=== PATIENT | male | born 1970 | race African-American/Black ===

== ENCOUNTER 2021-09-01 23:57 | Observation (INO) | payer OTHER ==
[~2021-09-01] VITALS: Ht 172.7 cm; Wt 105.3 kg
[~2021-09-01 23:57] MED LIST: MEDROL DOSEPAK4 MG PO
[2021-09-02] VITALS (16 sets, daily range): BP systolic 103–142; BP diastolic 54–84; TEMP 98.1–99.2; Ht 172.7 cm; Wt 105.3 kg
[2021-09-02 00:44] LABS: POTASSIUM 3.6 mmol/L (3.6-5.2)
[2021-09-02 00:47] LABS: PLATELET COUNT 3 K/uL (142-355)
[2021-09-03 00:05] VITALS: BP 125/63; TEMP 98.7
[2021-09-03 04:05] VITALS: BP 122/65; TEMP 98
[2021-09-03 05:10] LABS: PLATELET COUNT 35 K/uL (142-355)
[2021-09-03 08:05] VITALS: BP 124/76; TEMP 98.3
[2021-09-03 12:05] VITALS: BP 127/67; TEMP 98.6
[2021-09-03 16:05] VITALS: BP 129/66; TEMP 98.7
[2021-09-03 20:06] VITALS: BP 136/61; TEMP 98.6
[2021-09-04 00:05] VITALS: BP 131/67; TEMP 97.7
[2021-09-04 04:05] VITALS: BP 125/67; TEMP 98.3
[2021-09-04 08:05] VITALS: BP 128/62; TEMP 98.2
[2021-09-04 08:44] LABS: PLATELET COUNT 54 K/uL (142-355)
[2021-09-04 12:05] VITALS: BP 127/68; TEMP 98.3
== END 2021-09-04 14:30 | disposition home or self-care (01) ==
LOC: ED 23:57 → MED/SURG 09-02 01:40
PROVIDERS: Emergency Medicine; Family Medicine; ADMIT Internal Medicine Endocrinology, Diabetes & Metabolism; ATTEND Internal Medicine Endocrinology, Diabetes & Metabolism
PROC: 30233R1 Transfusion of Nonautologous Platelets into Peripheral Vein, Percutaneous Approach (ICD-10-PCS; principal; 2021-09-02)
DX: D69.6 Thrombocytopenia, unspecified (principal); E11.65 Type 2 diabetes mellitus with hyperglycemia; M25.59 Pain in other specified joint; D72.828 Other elevated white blood cell count; Z91.19 Patient's noncompliance with other medical treatment and regimen
CPT/HCPCS: 36415; 36430; 80053; 82948; 83036; 83735; 84484; 85008; 85027; 85610; 86900; 86901; 87635; 93005; 96372; 96374; 96375; 99220; 99283; G0378; J1100; J1815; P9035; U0003

== ENCOUNTER 2021-11-04 22:07 | Emergency (ER) | payer OTHER ==
[~2021-11-04] VITALS: Ht 172.7 cm; Wt 105.2 kg
[2021-11-04] MEDS ORDERED: CLINDAMYCIN HY300 MG PO (23:12)
[2021-11-04 23:50] VITALS: BP 145/81; TEMP 97.8
== END 2021-11-04 23:50 | disposition home or self-care (01) ==
LOC: ED 22:07
DX: K02.9 Dental caries, unspecified (principal); M27.3 Alveolitis of jaws
CPT/HCPCS: 96372; 99282